=== PATIENT | male | born 1980 | race Caucasian/White ===

== ENCOUNTER 2018-05-05 20:13 | Emergency (ER) | payer OTHER, SELFPAY ==
[2018-05-05] MEDS: ALBUTEROL 90 MCG/ACT 8GM HFA INHALER INH (22:12)
[2018-05-05] MEDS: TUSSICAPS ER 10/8MG CAPSULE PO (22:15)
== END 2018-05-05 22:49 | disposition home or self-care (01) ==
LOC: M ED 20:13
DX: J20.8 Acute bronchitis due to other specified organisms (principal); I10 Essential (primary) hypertension; Z79.82 Long term (current) use of aspirin; Z79.899 Other long term (current) drug therapy; Z88.0 Allergy status to penicillin
CPT/HCPCS: 94640

== ENCOUNTER → 2019-06-23 | Outpatient (REF) | payer OTHER, SELFPAY ==
[~2019-06-23] MED LIST: ASPI81CH33 PO; DAY1CAP PO; FLON1SPR NARES; MUCI600T37 PO; MULTCAP PO; TUSS1CAP5 PO; VENTAER INH
[2019-06-23 17:00] LABS: APPEARANCE, URINE CLEAR (CLEAR); BACTERIA, URINE AUTO NEGATIVE (NEGATIVE); BILIRUBIN, URINE AUTO NEGATIVE (NEGATIVE); BLOOD, URINE BLOOD NEGATIVE (NEGATIVE); COLOR, URINE YELLOW (YELLOW); GLUCOSE, URINE (UA) AUTO NEGATIVE (NEGATIVE); KETONE, URINE AUTO NEGATIVE (NEGATIVE); LEUKOCYTE ESTERASE, URINE AUTO NEGATIVE (NEGATIVE); NITRITE, URINE AUTO NEGATIVE (NEGATIVE); PROTEIN, URINE AUTO NEGATIVE (NEGATIVE); RBC, URINE AUTO 0 /HPF (0-3); SPECIFIC GRAVITY URINE AUTO 1.009 (1.002-1.035); SQUAMOUS EPITHELIAL CELL UR AU 0 /HPF (0-6); UROBILINOGEN, URINE AUTO 0.2 mg/dL (0.0-2.0); WBC, URINE AUTO 0 /HPF (0-3)
== END ==
LOC: M LAB REF 15:04
PROVIDERS: ATTEND Physician Assistant Medical
DX: N39.0 Urinary tract infection, site not specified (principal)

== ENCOUNTER 2020-02-22 23:24 | Emergency (ER) | payer SELFPAY ==
[~2020-02-22] VITALS: Ht 182.9 cm; Wt 104.8 kg
[2020-02-23] MEDS ORDERED: LIDOCAINE W/EPINEPHRINE 1% 20ML VIAL SC ONE
[2020-02-23] MEDS ORDERED: ACETAMINOPHEN 325 MG TAB PO ONE
[2020-02-23] MEDS ORDERED: BOOSTRIX/ADACEL VACCINE (DIPHTH/PERTUSS/ACELL/TETANUS) 0.5ML SYR IM ONE
[2020-02-23 01:09] VITALS: BP 155/87
== END 2020-02-23 01:12 | disposition home or self-care (01) ==
LOC: M ED 23:24
DX: S01.81XA Laceration without foreign body of other part of head, initial encounter (principal); W20.8XXA Other cause of strike by thrown, projected or falling object, initial encounter; Y92.017 Garden or yard in single-family (private) house as the place of occurrence of the external cause; Y93.H9 Activity, other involving exterior property and land maintenance, building and construction; Z88.0 Allergy status to penicillin; Z88.8 Allergy status to other drugs, medicaments and biological substances; E78.00 Pure hypercholesterolemia, unspecified; K21.9 Gastro-esophageal reflux disease without esophagitis

== ENCOUNTER 2020-03-02 16:29 | Emergency (ER) | payer BC, SELFPAY ==
[~2020-03-02] VITALS: Ht 182.9 cm; Wt 108.8 kg
[2020-03-02 16:29] VITALS: BP 135/89
== END 2020-03-02 17:00 | disposition home or self-care (01) ==
LOC: M ED 16:29
DX: Z48.02 Encounter for removal of sutures (principal); F17.200 Nicotine dependence, unspecified, uncomplicated; Z88.0 Allergy status to penicillin

== ENCOUNTER 2020-08-01 09:21 | Emergency (ER) | payer OTHER, BC ==
[~2020-08-01] VITALS: Ht 182.9 cm; Wt 109.1 kg
[2020-08-01] MEDS ORDERED: methocarbamoL 750 MG TAB PO ONE (10:00)
[2020-08-01] MEDS ORDERED: KETOROLAC 60MG 2ML VIAL IM ONE (10:00)
[2020-08-01] MEDS ORDERED: CYCL-707 PO (10:54)
[2020-08-01] MEDS ORDERED: KETO10TAB PO (10:54)
[2020-08-01 10:59] VITALS: BP 119/69
== END 2020-08-01 11:07 | disposition home or self-care (01) ==
LOC: M ED 09:21
DX: S33.5XXA Sprain of ligaments of lumbar spine, initial encounter (principal); X50.1XXA Overexertion from prolonged static or awkward postures, initial encounter; Y92.9 Unspecified place or not applicable; Y93.89 Activity, other specified; Y99.9 Unspecified external cause status; I10 Essential (primary) hypertension; E78.5 Hyperlipidemia, unspecified; K21.9 Gastro-esophageal reflux disease without esophagitis; F17.200 Nicotine dependence, unspecified, uncomplicated; Z88.0 Allergy status to penicillin
CPT/HCPCS: 96372; 99283; J1885